=== PATIENT | female | born 1990 | race Caucasian/White ===

== ENCOUNTER 2017-08-03 22:46 | Inpatient (IN) | payer MEDICAID ==
[~2017-08-03] VITALS: Ht 162.6 cm; Wt 74.3 kg
[2017-08-03] MEDS ORDERED: CALCIUM CHLORIDE 10%, 10ML SYR ONE (23:07)
[2017-08-03] MEDS ORDERED: SODIUM BICARB 8.4%, 50ML SYRINGE ONE (23:07)
[2017-08-03] MEDS ORDERED: CALCIUM CHLORIDE 10%, 10ML SYR IVPush ONE (23:30)
[2017-08-03] MEDS ORDERED: SODIUM CHLORIDE 0.9% 1,000ML IVBOLUS ONE ×2 (23:30)
[2017-08-03] MEDS ORDERED: SODIUM BICARB 8.4%, 50ML SYRINGE IVPush ONE (23:30)
[2017-08-03 23:31] LABS: ACETONE, SERUM Large (80mg/dL) mg/dL (Negative)
[2017-08-03] MEDS ORDERED: REGULAR INSULIN 62.5 UNITS in SODIUM CHLORIDE 0.9% 249.375 ML IV PRN (23:37)
[2017-08-03] MEDS ORDERED: LORazepam 2 MG/ML, 1ML ONE (23:39)
[2017-08-03 23:42] LABS: BASOPHILS # (AUTO) 0.03 x10^3/uL (0-0.1); BASOPHILS % (AUTO) 0 % (0-1); EOSINOPHILS % (AUTO) 0 % (1-7); LYMPHOCYTES # (AUTO) 1.36 x10^3/uL (1-3.4); LYMPHOCYTES % (AUTO) 9 % (22-44); MD NO; MEAN CORPUSCULAR HEMOGLOBIN 34.8 pg (27.0-34.8); MEAN CORPUSCULAR VOLUME 105.3 fL (80-100); MEAN PLATELET VOLUME 9.7 fL (7.4-10.4); MONOCYTES # (AUTO) 0.68 x10^3/uL (0.2-0.8); MONOCYTES % (AUTO) 5 % (2-9); NEUTROPHILS % (AUTO) 86 % (42-75); PLATELET COUNT 281 x10^3/uL (130-400); RED BLOOD COUNT 4.43 x10^6/uL (3.82-5.3); RED CELL DISTRIBUTION WIDTH 13.8 % (9.6-15.2)
[2017-08-03 23:55] LABS: PH, VENOUS 7.221 pH (7.320-7.420)
[2017-08-04 00:32] LABS: ALANINE AMINOTRANSFERASE 108 U/L (12-78); ALBUMIN 3.8 g/dL (3.4-5.0); ANION GAP 34 mmol/L (5-15); CALCIUM 9.9 mg/dL (8.5-10.1); CHLORIDE 99 mmol/L (98-107); CREATININE 1.16 mg/dL (0.55-1.02)
[2017-08-04 00:34] LABS: ALKALINE PHOSPHATASE 98 U/L (45-117); TOTAL PROTEIN 8.8 g/dL (6.4-8.2)
[2017-08-04] MEDS ORDERED: LORazepam 2 MG/ML, 1ML ONE (01:29)
[2017-08-04] MEDS ORDERED: LORazepam 2 MG/ML, 1ML IVPush ONE ×2 (01:30)
[2017-08-04] MEDS ORDERED: MAGNESIUM SULFATE PMX 2GM/50ML 50 ML IV ONE (01:30)
[2017-08-04 01:36] LABS: MICROSCOPIC AUTO
[2017-08-04 01:42] LABS: CULTURE INDICATED? NO
[2017-08-04] MEDS ORDERED: D5%-0.45% NACL 1,000 ML IV PRN (01:44)
[2017-08-04] MEDS ORDERED: REGULAR INSULIN 62.5 UNITS in SODIUM CHLORIDE 0.9% 249.375 ML IV PRN ×2 (01:44→07:30)
[2017-08-04] MEDS ORDERED: SODIUM CHLORIDE 0.9% 1,000 ML IV SCH (01:47)
[2017-08-04 01:51] LABS: AMPHETAMINE SCREEN, URINE Negative (Negative); BARBITURATE SCREEN, URINE Negative (Negative); BENZODIAZEPINE SCREEN, URINE Negative (Negative); CANNABINOID SCREEN, URINE Negative (Negative); COCAINE SCREEN, URINE Negative (Negative); METHADONE SCREEN, URINE Negative (Negative); OPIATE SCREEN, URINE Negative (Negative)
[2017-08-04] MEDS ORDERED: ONDANSETRON 2MG/ML, 2ML IVPush PRN (02:00)
[2017-08-04] MEDS ORDERED: OXYcodone IR 5MG TABLET PO PRN (02:00)
[2017-08-04] MEDS ORDERED: LORazepam 1MG TABLET PO PRN ×4 (02:00)
[2017-08-04] MEDS ORDERED: BISACODYL 10 MG SUPP PR PRN (02:00)
[2017-08-04] MEDS ORDERED: hydrALAzine 20 MG/ML, 1ML IVPush PRN (02:00)
[2017-08-04] MEDS ORDERED: POLYETHYLENE GLYCOL 17 GM PACKET PO PRN (02:00)
[2017-08-04] MEDS ORDERED: morphine SULFATE 10 MG/ML, 1ML IVPush PRN (02:00)
[2017-08-04] MEDS ORDERED: LORazepam 0.5MG TABLET PO PRN (02:00)
[2017-08-04] MEDS ORDERED: LORazepam 2 MG/ML, 1ML IV PRN ×5 (02:00)
[2017-08-04 02:43] LABS: HEMOGLOBIN A1C 8.9 % (4.2-6.3)
[2017-08-04] MEDS: POTASSIUM CHLORIDE 20 MEQ in SODIUM CHLORIDE 0.45% 1,000 ML IV SCH ×2 (02:55→05:30)
[2017-08-04 03:39] VITALS: BP 117/86
[2017-08-04 04:00] VITALS: BP 140/92
[2017-08-04] MEDS: HEPARIN 5,000 UNITS/ML, 1ML SQ SCH ×3 (04:35→20:48)
[2017-08-04 05:05] LABS: ANION GAP 24 mmol/L (5-15); CALCIUM 8.6 mg/dL (8.5-10.1); CHLORIDE 110 mmol/L (98-107); CREATININE 0.96 mg/dL (0.55-1.02)
[2017-08-04] MEDS ORDERED: LORA2VIA4 PO (05:41)
[2017-08-04] MEDS ORDERED: MULT-658 PO (05:41)
[2017-08-04] MEDS ORDERED: INSU100I18 SQ (05:41)
[2017-08-04] MEDS ORDERED: INSU100I17 SQ (05:41)
[2017-08-04] MEDS ORDERED: SERT20OR PO (05:41)
[2017-08-04] MEDS ORDERED: POTASSIUM CHLORIDE 20 MEQ in DEXTROSE 5% 1,000 ML IV SCH (07:30)
[2017-08-04] MEDS ORDERED: LORazepam 2 MG/ML, 1ML IVPush PRN (08:30)
[2017-08-04] MEDS: CHLORDIAZEPOXIDE 25 MG CAPSULE PO SCH ×3 (08:41→20:48)
[2017-08-04] MEDS: SENNA/DOCUSATE TABLET PO SCH (08:41)
[2017-08-04] MEDS: THIAMINE 100MG TABLET PO SCH ×2 (08:41→20:49)
[2017-08-04] MEDS: FOLIC ACID 1 MG TABLET PO SCH (08:41)
[2017-08-04] MEDS: MULTIVITAMINS/MINERALS TABLET PO SCH (09:00)
[2017-08-04] MEDS ORDERED: THIAMINE 100MG TABLET PO SCH (09:00)
[2017-08-04 10:47] LABS: ANION GAP 17 mmol/L (5-15); CALCIUM 8.8 mg/dL (8.5-10.1); CHLORIDE 109 mmol/L (98-107); CREATININE 1.24 mg/dL (0.55-1.02)
[2017-08-04] MEDS ORDERED: SODIUM PHOSPHATE 20 MMOL in SODIUM CHLORIDE 0.9% 500 ML IV ONE (11:00)
[2017-08-04 12:21] LABS: ANION GAP 16 mmol/L (5-15); CALCIUM 8.8 mg/dL (8.5-10.1); CHLORIDE 108 mmol/L (98-107)
[2017-08-04 16:30] LABS: ANION GAP 12 mmol/L (5-15); CALCIUM 8.5 mg/dL (8.5-10.1); CHLORIDE 108 mmol/L (98-107); CREATININE 1.13 mg/dL (0.55-1.02)
[2017-08-04] MEDS ORDERED: POTASSIUM CHLORIDE 20 MEQ TAB.ER.PRT PO ONE (17:00)
[2017-08-04] MEDS ORDERED: INSULIN GLARGINE 100 UNITS/ML, PEN ONE (17:37)
[2017-08-04] MEDS: INSULIN GLARGINE 100 UNITS/ML, PEN SQ-INSULIN SCH (17:41)
[2017-08-04] MEDS: SODIUM CHLORIDE 0.45% 1,000 ML IV SCH (17:41)
[2017-08-04] MEDS ORDERED: INSULIN LISPRO 100 UNITS/ML, PEN SQ-INSULIN SCH (21:00)
[2017-08-05] MEDS: INSULIN LISPRO 100 UNITS/ML, PEN SQ-INSULIN SCH ×2 (00:54→05:20)
[2017-08-05] MEDS: SODIUM CHLORIDE 0.45% 1,000 ML IV SCH (03:13)
[2017-08-05 04:00] VITALS: BP 115/89
[2017-08-05] MEDS: HEPARIN 5,000 UNITS/ML, 1ML SQ SCH (04:01)
[2017-08-05 04:42] LABS: ALANINE AMINOTRANSFERASE 69 U/L (12-78); ALBUMIN 2.9 g/dL (3.4-5.0); ANION GAP 11 mmol/L (5-15); CALCIUM 8.5 mg/dL (8.5-10.1); CHLORIDE 107 mmol/L (98-107); CREATININE 0.97 mg/dL (0.55-1.02)
[2017-08-05 04:44] LABS: BASOPHILS # (AUTO) 0.07 x10^3/uL (0-0.1); BASOPHILS % (AUTO) 1 % (0-1); EOSINOPHILS # (AUTO) 0.04 x10^3/uL (0-0.4); EOSINOPHILS % (AUTO) 1 % (1-7); LYMPHOCYTES # (AUTO) 2.57 x10^3/uL (1-3.4); LYMPHOCYTES % (AUTO) 35 % (22-44); MD NO; MEAN CORPUSCULAR HEMOGLOBIN 35.4 pg (27.0-34.8); MEAN CORPUSCULAR HGB CONC 34.1 g/dL (32.4-35.8); MEAN CORPUSCULAR VOLUME 103.9 fL (80-100); MEAN PLATELET VOLUME 9.4 fL (7.4-10.4); MONOCYTES % (AUTO) 11 % (2-9); NEUTROPHILS # (AUTO) 3.98 x10^3/uL (1.8-6.8); NEUTROPHILS % (AUTO) 53 % (42-75); PLATELET COUNT 178 x10^3/uL (130-400); RED BLOOD COUNT 3.67 x10^6/uL (3.82-5.3); RED CELL DISTRIBUTION WIDTH 13.8 % (9.6-15.2)
[2017-08-05 04:46] LABS: ALKALINE PHOSPHATASE 77 U/L (45-117); BILIRUBIN,TOTAL 0.9 mg/dL (0.2-1.0); CHOL/HDL RATIO 3.6; CHOLESTEROL, TOTAL 237 mg/dL (140-239); HDL CHOL % 28 % (28-40); HDL CHOLESTEROL (DIRECT) 66 mg/dL (40-60); LDL CHOLESTEROL,CALCULATED 122 mg/dL (54-169); LDL/HDL RATIO 1.8 (0.5-3.0); TRIGLYCERIDES 245 mg/dL (50-200); VLDL CHOLESTEROL 49 mg/dL (0-25)
[2017-08-05] MEDS ORDERED: POTASSIUM CHLORIDE 20 MEQ TAB.ER.PRT PO ONE (08:00)
[2017-08-05] MEDS ORDERED: INSULIN LISPRO 100 UNITS/ML, PEN SQ-INSULIN SCH (08:00)
[2017-08-05] MEDS: SENNA/DOCUSATE TABLET PO SCH (08:24)
[2017-08-05] MEDS: MULTIVITAMINS/MINERALS TABLET PO SCH (08:24)
[2017-08-05] MEDS: THIAMINE 100MG TABLET PO SCH (08:24)
[2017-08-05] MEDS: CHLORDIAZEPOXIDE 25 MG CAPSULE PO SCH (08:24)
[2017-08-05] MEDS: FOLIC ACID 1 MG TABLET PO SCH (08:24)
[2017-08-05] MEDS: INSULIN GLARGINE 100 UNITS/ML, PEN SQ-INSULIN SCH (08:25)
== END 2017-08-05 10:15 | disposition home or self-care (01) | DRG 638 ==
LOC: ED 23:55 → EDIP 08-04 00:50 → CCU 08-04 02:49
PROVIDERS: ADMIT Internal Medicine; ATTEND Internal Medicine
DX: E10.10 Type 1 diabetes mellitus with ketoacidosis without coma (principal); I47.2 Ventricular tachycardia; N17.9 Acute kidney failure, unspecified; E10.649 Type 1 diabetes mellitus with hypoglycemia without coma; F10.239 Alcohol dependence with withdrawal, unspecified; K70.10 Alcoholic hepatitis without ascites; D75.89 Other specified diseases of blood and blood-forming organs; E78.5 Hyperlipidemia, unspecified; E86.0 Dehydration; F12.90 Cannabis use, unspecified, uncomplicated; F32.9 Major depressive disorder, single episode, unspecified; F41.9 Anxiety disorder, unspecified; K76.0 Fatty (change of) liver, not elsewhere classified; Z81.8 Family history of other mental and behavioral disorders; Z79.4 Long term (current) use of insulin; Z82.0 Family history of epilepsy and other diseases of the nervous system; Z91.14 Patient's other noncompliance with medication regimen
CPT/HCPCS: 36415; 36600; 71045; 76700; 80047; 80048; 80053; 80061; 80307; 81001; 82010; 82306; 82607; 82803; 82962; 83036; 83735; 84100; 84439; 84443; 84703; 85025; 86705; 86706; 86709; 86803; 87081; 87340; 93005; 96361; 96374; 96375; 96376; J1644; J1815; J3480; J7070; J2060; J3475; J7030; J7040; J7050

== ENCOUNTER 2017-12-16 18:17 | Inpatient (IN) | payer MEDICAID ==
[~2017-12-16] VITALS: Ht 162.6 cm; Wt 73.1 kg
[~2017-12-16 18:17] MED LIST: INSU100I17 SQ; INSU100I18 SQ; LORA2VIA4 PO; MULT-658 PO; SERT20OR PO
[2017-12-16 18:58] LABS: BASOPHILS # (AUTO) 0.03 x10^3/uL (0-0.1); BASOPHILS % (AUTO) 0 % (0-1); EOSINOPHILS # (AUTO) 0.03 x10^3/uL (0-0.4); EOSINOPHILS % (AUTO) 0 % (1-7); LYMPHOCYTES # (AUTO) 3.97 x10^3/uL (1-3.4); LYMPHOCYTES % (AUTO) 48 % (22-44); MD NO; MEAN CORPUSCULAR HEMOGLOBIN 34.7 pg (27.0-34.8); MEAN CORPUSCULAR HGB CONC 33.9 g/dL (32.4-35.8); MEAN CORPUSCULAR VOLUME 102.4 fL (80-100); MEAN PLATELET VOLUME 9.9 fL (7.4-10.4); MONOCYTES # (AUTO) 0.52 x10^3/uL (0.2-0.8); MONOCYTES % (AUTO) 6 % (2-9); NEUTROPHILS # (AUTO) 3.81 x10^3/uL (1.8-6.8); NEUTROPHILS % (AUTO) 46 % (42-75); PH, VENOUS 7.208 pH (7.320-7.420); PLATELET COUNT 248 x10^3/uL (130-400); RED BLOOD COUNT 4.46 x10^6/uL (3.82-5.3)
[2017-12-16] MEDS ORDERED: SODIUM CHLORIDE 0.9% 1,000ML IVBOLUS ONE (19:00)
[2017-12-16] MEDS ORDERED: ONDANSETRON 2MG/ML, 2ML IVPush ONE (19:00)
[2017-12-16] MEDS ORDERED: THIAMINE 100 MG in SODIUM CHLORIDE 0.9% 50 ML IVPB ONE (19:00)
[2017-12-16] MEDS ORDERED: SODIUM CHLORIDE FLUSH 10ML SYR IVF ONE (19:00)
[2017-12-16 19:07] LABS: ALANINE AMINOTRANSFERASE 71 U/L (12-78); ANION GAP 27 mmol/L (5-15); CALCIUM 9.5 mg/dL (8.5-10.1); CHLORIDE 99 mmol/L (98-107); CREATININE 1.15 mg/dL (0.55-1.02)
[2017-12-16 19:10] LABS: ALKALINE PHOSPHATASE 153 U/L (45-117); BILIRUBIN,TOTAL 0.4 mg/dL (0.2-1.0); TOTAL PROTEIN 9.6 g/dL (6.4-8.2)
[2017-12-16 19:13] LABS: O2 FLOW ROOM AIR L/min
[2017-12-16] MEDS ORDERED: ONDANSETRON 2MG/ML, 2ML ONE (19:15)
[2017-12-16] MEDS ORDERED: REGULAR INSULIN 62.5 UNITS in SODIUM CHLORIDE 0.9% 249.375 ML IV PRN ×2 (19:26→20:48)
[2017-12-16] MEDS ORDERED: SODIUM CHLORIDE 0.9%, 500ML IVBOLUS ONE (19:30)
[2017-12-16] MEDS ORDERED: ESCI20TA10 PO (20:01)
[2017-12-16 20:20] LABS: ACETONE, SERUM Large (80mg/dL) mg/dL (Negative)
[2017-12-16] MEDS ORDERED: D5%-0.45% NACL 1,000 ML IV PRN (20:48)
[2017-12-16] MEDS: SODIUM CHLORIDE 0.9% 1,000 ML IV SCH (20:53)
[2017-12-16] MEDS ORDERED: ONDANSETRON ODT 4 MG PO PRN (21:00)
[2017-12-16] MEDS ORDERED: ONDANSETRON 2MG/ML, 2ML IVPush PRN (21:00)
[2017-12-16] MEDS ORDERED: BISACODYL 10 MG SUPP PR PRN (21:00)
[2017-12-16] MEDS ORDERED: PROMETHAZINE 25 MG/ML, 1ML IM PRN (21:00)
[2017-12-16] MEDS ORDERED: DOCUSATE 100 MG CAPSULE PO PRN (21:00)
[2017-12-16] MEDS ORDERED: LORazepam 0.5MG TABLET PO PRN (21:00)
[2017-12-16] MEDS ORDERED: LORazepam 2 MG/ML, 1ML IV PRN ×5 (21:00)
[2017-12-16] MEDS ORDERED: LORazepam 1MG TABLET PO PRN ×4 (21:00)
[2017-12-16] MEDS ORDERED: hydrALAzine 20 MG/ML, 1ML IVPush PRN (21:00)
[2017-12-16] MEDS ORDERED: POLYETHYLENE GLYCOL 17 GM PACKET PO PRN (21:00)
[2017-12-16] MEDS ORDERED: MAGNESIUM SULFATE PMX 2GM/50ML 50 ML IV ONE (21:30)
[2017-12-16 21:38] LABS: FREE T4 (FREE THYROXINE) 0.71 ng/dL (0.76-1.46)
[2017-12-16 22:00] LABS: FOLATE LEVEL 12.1 ng/mL (3.1-17.5)
[2017-12-16] MEDS: HEPARIN 5,000 UNITS/ML, 1ML SQ SCH (22:26)
[2017-12-16 23:11] LABS: MICROSCOPIC AUTO
[2017-12-16 23:17] LABS: CULTURE INDICATED? YES
[2017-12-17 00:17] LABS: ANION GAP 19 mmol/L (5-15); CALCIUM 8.8 mg/dL (8.5-10.1); CHLORIDE 104 mmol/L (98-107); CREATININE 0.92 mg/dL (0.55-1.02)
[2017-12-17] MEDS ORDERED: MAGNESIUM SULFATE PMX 2GM/50ML 50 ML IV ONE (01:00)
[2017-12-17] MEDS ORDERED: ERGOCALCIFEROL 50,000 UNIT CAPSULE PO SCH (01:00)
[2017-12-17] MEDS ORDERED: CEFTRIAXONE 1,000 MG in SODIUM CHLORIDE 0.9% 50 ML IVPB SCH (01:00)
[2017-12-17 04:37] VITALS: BP 116/80
[2017-12-17 04:49] LABS: CHLORIDE 104 mmol/L (98-107)
[2017-12-17 05:01] LABS: ALANINE AMINOTRANSFERASE 51 U/L (12-78); ALBUMIN 2.9 g/dL (3.4-5.0); ALKALINE PHOSPHATASE 102 U/L (45-117); ANION GAP 13 mmol/L (5-15); BILIRUBIN,TOTAL 0.4 mg/dL (0.2-1.0); CALCIUM 8.3 mg/dL (8.5-10.1); CHOL/HDL RATIO 4.1; CHOLESTEROL, TOTAL 240 mg/dL (140-239); CREATININE 0.88 mg/dL (0.55-1.02); HDL CHOL % 25 % (28-40); HDL CHOLESTEROL (DIRECT) 59 mg/dL (40-60); LDL CHOLESTEROL,CALCULATED 132 mg/dL (54-169); LDL/HDL RATIO 2.2 (0.5-3.0); TOTAL PROTEIN 7.3 g/dL (6.4-8.2); TRIGLYCERIDES 247 mg/dL (50-200); VLDL CHOLESTEROL 49 mg/dL (0-25)
[2017-12-17 05:10] LABS: BASOPHILS # (AUTO) 0.02 x10^3/uL (0-0.1); BASOPHILS % (AUTO) 0 % (0-1); EOSINOPHILS # (AUTO) 0.03 x10^3/uL (0-0.4); EOSINOPHILS % (AUTO) 1 % (1-7); LYMPHOCYTES # (AUTO) 2.39 x10^3/uL (1-3.4); LYMPHOCYTES % (AUTO) 36 % (22-44); MD NO; MEAN CORPUSCULAR HEMOGLOBIN 34.5 pg (27.0-34.8); MEAN CORPUSCULAR HGB CONC 34.2 g/dL (32.4-35.8); MEAN CORPUSCULAR VOLUME 101.1 fL (80-100); MEAN PLATELET VOLUME 10.1 fL (7.4-10.4); MONOCYTES # (AUTO) 0.77 x10^3/uL (0.2-0.8); MONOCYTES % (AUTO) 12 % (2-9); NEUTROPHILS # (AUTO) 3.41 x10^3/uL (1.8-6.8); NEUTROPHILS % (AUTO) 52 % (42-75); PLATELET COUNT 190 x10^3/uL (130-400); RED BLOOD COUNT 3.71 x10^6/uL (3.82-5.3); RED CELL DISTRIBUTION WIDTH 15.7 % (9.6-15.2)
[2017-12-17] MEDS: HEPARIN 5,000 UNITS/ML, 1ML SQ SCH ×3 (05:21→13:14)
[2017-12-17] MEDS ORDERED: LORazepam 2 MG/ML, 1ML IVPush PRN (07:00)
[2017-12-17] MEDS: SODIUM CHLORIDE 0.9% 1,000 ML IV SCH (08:00)
[2017-12-17] MEDS ORDERED: THIAMINE 100MG TABLET PO SCH (09:00)
[2017-12-17] MEDS ORDERED: CITALOPRAM 20 MG TABLET PO SCH (09:00)
[2017-12-17] MEDS ORDERED: FOLIC ACID 1 MG TABLET PO SCH (09:00)
[2017-12-17] MEDS ORDERED: MULTIVITAMIN 1 TABLET PO SCH (09:00)
[2017-12-17 10:40] LABS: ANION GAP 12 mmol/L (5-15); CALCIUM 8.4 mg/dL (8.5-10.1); CHLORIDE 104 mmol/L (98-107); CREATININE 0.88 mg/dL (0.55-1.02)
[2017-12-17] MEDS ORDERED: INSULIN GLARGINE 100 UNITS/ML, PEN SQ-INSULIN SCH (11:30)
[2017-12-17] MEDS ORDERED: POTASSIUM CHLORIDE 20 MEQ TAB.ER.PRT PO ONE (11:30)
[2017-12-17] MEDS ORDERED: INSU100I18 SQ (14:43)
[2017-12-17] MEDS ORDERED: ESCI20TA10 PO (14:43)
[2017-12-17] MEDS ORDERED: INSU100I17 SQ (14:43)
[2017-12-17] MEDS ORDERED: NALT50TA PO (14:43)
[2017-12-17] MEDS ORDERED: ERGO500017 PO (18:15)
== END 2017-12-17 16:15 | disposition home or self-care (01) | DRG 682 ==
LOC: ED 19:54 → EDIP 19:55 → CCU 21:29 → DCLOUNGE 12-17 15:50
PROVIDERS: ADMIT Internal Medicine; ATTEND Internal Medicine
DX: N17.9 Acute kidney failure, unspecified (principal); E10.10 Type 1 diabetes mellitus with ketoacidosis without coma; F10.239 Alcohol dependence with withdrawal, unspecified; D75.89 Other specified diseases of blood and blood-forming organs; E55.9 Vitamin D deficiency, unspecified; E86.0 Dehydration; F10.229 Alcohol dependence with intoxication, unspecified; N13.9 Obstructive and reflux uropathy, unspecified; E10.65 Type 1 diabetes mellitus with hyperglycemia; F12.10 Cannabis abuse, uncomplicated; F32.9 Major depressive disorder, single episode, unspecified; F41.9 Anxiety disorder, unspecified; Z79.4 Long term (current) use of insulin; Z81.8 Family history of other mental and behavioral disorders; Z82.0 Family history of epilepsy and other diseases of the nervous system; Z91.14 Patient's other noncompliance with medication regimen; Z72.0 Tobacco use
CPT/HCPCS: 36415; 74022; 80048; 80053; 80061; 80307; 81001; 82010; 82306; 82607; 82746; 82803; 82962; 83036; 83735; 84100; 84439; 84443; 84703; 85025; 87077; 87081; 87086; 87147; 87186; J0696; J1644; J1815; J2405; J3411; J2060; J3475; J7030; J7040; J7050

== ENCOUNTER 2018-04-25 14:18 | Inpatient (IN) | payer SELFPAY ==
[~2018-04-25] VITALS: Ht 162.6 cm; Wt 78.3 kg
[~2018-04-25 14:18] MED LIST changes: +ERGO500017 PO; +ESCI20TA10 PO; -LORA2VIA4 PO; +LORA2VIA6 PO; +NALT50TA PO
[2018-04-25] MEDS ORDERED: ONDANSETRON 2MG/ML, 2ML IVPush ONE (15:00)
[2018-04-25] MEDS ORDERED: SODIUM CHLORIDE 0.9% 1,000ML IVBOLUS ONE (15:00)
[2018-04-25 15:30] LABS: PH, VENOUS 7.132 pH (7.320-7.420)
[2018-04-25] MEDS ORDERED: ONDANSETRON 2MG/ML, 2ML ONE (15:33)
[2018-04-25 15:35] LABS: MEAN CORPUSCULAR HEMOGLOBIN 35.4 pg (27.0-34.8); MEAN CORPUSCULAR HGB CONC 32.5 g/dL (32.4-35.8); MEAN CORPUSCULAR VOLUME 108.8 fL (80-100); MEAN PLATELET VOLUME 10.7 fL (7.4-10.4); PLATELET COUNT 202 x10^3/uL (130-400); RED BLOOD COUNT 4.04 x10^6/uL (3.82-5.3); RED CELL DISTRIBUTION WIDTH 14.9 % (9.6-15.2)
[2018-04-25 15:37] LABS: O2 FLOW ROOM AIR L/min
[2018-04-25 15:42] LABS: ALANINE AMINOTRANSFERASE 269 U/L (12-78); ALBUMIN 3.7 g/dL (3.4-5.0); ANION GAP 32 mmol/L (5-15); CALCIUM 9.7 mg/dL (8.5-10.1); CHLORIDE 101 mmol/L (98-107); CREATININE 1.22 mg/dL (0.55-1.02)
[2018-04-25 15:44] LABS: ALKALINE PHOSPHATASE 166 U/L (45-117); BILIRUBIN,TOTAL 0.7 mg/dL (0.2-1.0); TOTAL PROTEIN 8.6 g/dL (6.4-8.2)
[2018-04-25] MEDS ORDERED: BISACODYL 10 MG SUPP PR PRN (16:00)
[2018-04-25] MEDS ORDERED: IBUPROFEN 600 MG TABLET PO PRN (16:00)
[2018-04-25] MEDS ORDERED: ACETAMINOPHEN 325 MG TABLET PO PRN (16:00)
[2018-04-25] MEDS ORDERED: ENOXAPARIN 40 MG/0.4 ML SQ SCH (16:00)
[2018-04-25] MEDS ORDERED: ONDANSETRON 2MG/ML, 2ML IVPush PRN (16:00)
[2018-04-25] MEDS ORDERED: LABETALOL 5MG/ML, 20ML IVPush PRN (16:00)
[2018-04-25] MEDS ORDERED: ONDANSETRON ODT 4 MG PO PRN (16:00)
[2018-04-25] MEDS ORDERED: POLYETHYLENE GLYCOL 17 GM PACKET PO PRN (16:00)
[2018-04-25] MEDS ORDERED: REGULAR INSULIN 62.5 UNITS in SODIUM CHLORIDE 0.9% 249.375 ML IV PRN (16:00)
[2018-04-25 16:22] LABS: ACETONE, SERUM Moderate(40mg/dL) mg/dL (Negative); BASOPHILS % (AUTO) 1 % (0-1); EOSINOPHILS # (AUTO) 0.09 x10^3/uL (0-0.4); EOSINOPHILS % (AUTO) 1 % (1-7); LYMPHOCYTES # (AUTO) 6.44 x10^3/uL (1-3.4); LYMPHOCYTES % (AUTO) 55 % (22-44); MD SCAN; MONOCYTES # (AUTO) 0.49 x10^3/uL (0.2-0.8); MONOCYTES % (AUTO) 4 % (2-9); NEUTROPHILS % (AUTO) 40 % (42-75)
[2018-04-25 16:44] LABS: THYROID STIMULATING HORMONE 1.61 mIU/L (0.358-3.740)
[2018-04-25 16:53] LABS: HEMOGLOBIN A1C 9.7 % (4.2-6.3)
[2018-04-25] MEDS: D5%-0.45NACL+KCL 20MEQ 1,000 ML IV SCH ×2 (17:41→20:40)
[2018-04-25] MEDS: NS + 20MEQ KCL 1,000 ML IV SCH ×2 (18:09→20:58)
[2018-04-25 19:07] LABS: MICROSCOPIC AUTO
[2018-04-25 19:08] LABS: CULTURE INDICATED? YES
[2018-04-25 20:21] LABS: ANION GAP 28 mmol/L (5-15); CALCIUM 8.1 mg/dL (8.5-10.1); CHLORIDE 109 mmol/L (98-107); CREATININE 1.11 mg/dL (0.55-1.02)
[2018-04-25] MEDS ORDERED: INSU100V12 SQ (20:56)
[2018-04-25 21:04] LABS: AMPHETAMINE SCREEN, URINE Negative (Negative); BARBITURATE SCREEN, URINE Negative (Negative); BENZODIAZEPINE SCREEN, URINE Negative (Negative); CANNABINOID SCREEN, URINE Positive (Negative); COCAINE SCREEN, URINE Positive (Negative); METHADONE SCREEN, URINE Negative (Negative); OPIATE SCREEN, URINE Negative (Negative)
[2018-04-25] MEDS ORDERED: MAGNESIUM SULFATE PMX 2GM/50ML 50 ML IV ONE (22:00)
[2018-04-26] MEDS: NS + 20MEQ KCL 1,000 ML IV SCH ×2 (00:31→02:12)
[2018-04-26 00:46] LABS: ANION GAP 15 mmol/L (5-15); CALCIUM 7.7 mg/dL (8.5-10.1); CHLORIDE 106 mmol/L (98-107); CREATININE 1.01 mg/dL (0.55-1.02)
[2018-04-26 03:32] VITALS: BP 100/56
[2018-04-26 04:27] LABS: BASOPHILS # (AUTO) 0.02 x10^3/uL (0-0.1); BASOPHILS % (AUTO) 0 % (0-1); EOSINOPHILS # (AUTO) 0.01 x10^3/uL (0-0.4); EOSINOPHILS % (AUTO) 0 % (1-7); LYMPHOCYTES # (AUTO) 2.01 x10^3/uL (1-3.4); LYMPHOCYTES % (AUTO) 25 % (22-44); MD NO; MEAN CORPUSCULAR HEMOGLOBIN 35.4 pg (27.0-34.8); MEAN CORPUSCULAR HGB CONC 33.4 g/dL (32.4-35.8); MEAN CORPUSCULAR VOLUME 106.2 fL (80-100); MEAN PLATELET VOLUME 10.2 fL (7.4-10.4); MONOCYTES # (AUTO) 0.93 x10^3/uL (0.2-0.8); MONOCYTES % (AUTO) 12 % (2-9); NEUTROPHILS # (AUTO) 5.07 x10^3/uL (1.8-6.8); NEUTROPHILS % (AUTO) 63 % (42-75); PLATELET COUNT 165 x10^3/uL (130-400); RED BLOOD COUNT 3.44 x10^6/uL (3.82-5.3); RED CELL DISTRIBUTION WIDTH 14.4 % (9.6-15.2)
[2018-04-26] MEDS: D5%-0.45NACL+KCL 20MEQ 1,000 ML IV SCH (04:31)
[2018-04-26 04:33] LABS: ANION GAP 8 mmol/L (5-15); CALCIUM 8.4 mg/dL (8.5-10.1); CHLORIDE 104 mmol/L (98-107)
[2018-04-26 04:39] LABS: ALANINE AMINOTRANSFERASE 190 U/L (12-78); ALBUMIN 2.9 g/dL (3.4-5.0); ALKALINE PHOSPHATASE 114 U/L (45-117); BILIRUBIN,TOTAL 0.7 mg/dL (0.2-1.0); CHOL/HDL RATIO 2.5; CHOLESTEROL, TOTAL 217 mg/dL (140-239); HDL CHOL % 40 % (28-40); HDL CHOLESTEROL (DIRECT) 87 mg/dL (40-60); LDL CHOLESTEROL,CALCULATED 111 mg/dL (54-169); LDL/HDL RATIO 1.3 (0.5-3.0); TOTAL PROTEIN 6.7 g/dL (6.4-8.2); TRIGLYCERIDES 97 mg/dL (50-200); VLDL CHOLESTEROL 19 mg/dL (0-25)
[2018-04-26] MEDS ORDERED: POTASSIUM PHOSPHATE 44 MEQ in SODIUM CHLORIDE 0.9% 500 ML IV ONE (08:00)
[2018-04-26] MEDS ORDERED: INSULIN LISPRO 100 UNITS/ML, PEN SQ-INSULIN SCH (08:00)
[2018-04-26] MEDS ORDERED: SODIUM CHLORIDE 0.9% 1,000 ML IV SCH (08:00)
[2018-04-26] MEDS ORDERED: SENNA/DOCUSATE TABLET PO SCH (09:00)
[2018-04-26] MEDS ORDERED: INSULIN GLARGINE 100 UNITS/ML, PEN SQ-INSULIN SCH (09:00)
== END 2018-04-26 11:58 | disposition left against medical advice (07) | DRG 441 ==
LOC: ED 17:17 → CCU 17:30
PROVIDERS: ADMIT Internal Medicine; ATTEND Internal Medicine
DX: B17.9 Acute viral hepatitis, unspecified (principal); K85.20 Alcohol induced acute pancreatitis without necrosis or infection; E11.10 Type 2 diabetes mellitus with ketoacidosis without coma; N17.0 Acute kidney failure with tubular necrosis; D53.9 Nutritional anemia, unspecified; D72.828 Other elevated white blood cell count; E55.9 Vitamin D deficiency, unspecified; F14.10 Cocaine abuse, uncomplicated; F32.9 Major depressive disorder, single episode, unspecified; F41.9 Anxiety disorder, unspecified; F10.20 Alcohol dependence, uncomplicated; F17.200 Nicotine dependence, unspecified, uncomplicated; Z82.0 Family history of epilepsy and other diseases of the nervous system; Z91.19 Patient's noncompliance with other medical treatment and regimen; Z87.440 Personal history of urinary (tract) infections
CPT/HCPCS: 36415; 71045; 80048; 80053; 80061; 80307; 81001; 82010; 82803; 82962; 83036; 83690; 83735; 84100; 84443; 85025; 87081; 87086; 93005; 96372; 96374; 96376; G0378; J1650; J1815; J2405; J3480; J3475; J7030; J7040; J7050

== ENCOUNTER 2018-06-10 07:45 | Inpatient (IN) | payer OTHER ==
[~2018-06-10] VITALS: Ht 162.6 cm; Wt 77.8 kg
[~2018-06-10 07:45] MED LIST changes: +INSU100V12 SQ
--- NOTE | 2018-06-10 07:54 | NUR ---
Pt BIB EMS from home for SOB. Pt in SVT on medic arrival with bp of 60/p, given 6mg adenosine with HR down to 110s and BP 88/61. Pt tachycardic, tachypnic. BG 3789 by EMS. Hx DM and SVT. Pt also c/o pain on urination, L flank pain. Also states daily drinker of 1pint rum daily. States no ETOH in 24 hours.
[2018-06-10] MEDS ORDERED: SODIUM CHLORIDE 0.9% 1,000ML IVBOLUS ONE ×2 (08:00→09:00)
[2018-06-10 08:33] LABS: MEAN CORPUSCULAR HEMOGLOBIN 35.6 pg (27.0-34.8); MEAN CORPUSCULAR HGB CONC 31.6 g/dL (32.4-35.8); MEAN CORPUSCULAR VOLUME 112.6 fL (80-100); MEAN PLATELET VOLUME 10.5 fL (7.4-10.4); PLATELET COUNT 292 x10^3/uL (130-400); RED BLOOD COUNT 3.81 x10^6/uL (3.82-5.3); RED CELL DISTRIBUTION WIDTH 15.2 % (9.6-15.2)
[2018-06-10 08:41] LABS: O2 FLOW ROOM AIR L/min; PH, VENOUS 6.729 pH (7.320-7.420)
[2018-06-10 08:47] LABS: ALANINE AMINOTRANSFERASE 127 U/L (12-78); ALBUMIN 3.6 g/dL (3.4-5.0); CALCIUM 8.8 mg/dL (8.5-10.1); CHLORIDE 96 mmol/L (98-107); CREATININE 1.79 mg/dL (0.55-1.02)
[2018-06-10 08:49] LABS: ALKALINE PHOSPHATASE 200 U/L (45-117); BILIRUBIN,TOTAL 0.9 mg/dL (0.2-1.0); TOTAL PROTEIN 8.7 g/dL (6.4-8.2)
[2018-06-10 08:51] LABS: MD YES
[2018-06-10 08:52] LABS: BAND#(MANUAL) 1.86 x10^3/uL; BANDS%(MANUAL) 7 % (0-7); BASOS#(MANUAL) 0.27 x10^3/uL (0-0.1); BASOS% (MANUAL) 1 % (0-1); LYMPH#(MANUAL) 7.16 x10^3/uL (1-3.4); LYMPHS% (MANUAL) 27 % (22-44); MONOS#(MANUAL) 2.12 x10^3/uL (0.3-2.7); MONOS% (MANUAL) 8 % (2-9); SEG#(MANUAL) 15.11 x10^3/uL (1.8-6.8); SEGS% (MANUAL) 57 % (42-75)
[2018-06-10 08:54] LABS: ANISOCYTOSIS 1+; HEMOGRAM NOTE RECHECKED
[2018-06-10 08:55] LABS: <PLATELET ESTIMATE> ADEQUATE; ANION GAP 35 mmol/L (5-15); LARGE PLATELETS 1+; POLYCHROMASIA 1+
[2018-06-10 09:08] LABS: ACETONE, SERUM Moderate(40mg/dL) mg/dL (Negative)
[2018-06-10] MEDS ORDERED: REGULAR INSULIN 62.5 UNITS in SODIUM CHLORIDE 0.9% 249.375 ML IV PRN ×2 (09:12→11:00)
[2018-06-10 09:26] LABS: MICROSCOPIC INDICATED
[2018-06-10] MEDS ORDERED: SODIUM CHLORIDE 0.9% 1,000 ML IV ONE (09:30)
--- NOTE | 2018-06-10 09:30 | NUR ---
Spoke with pt's sister Sailaja [phone] who would like to be updated with changes.
[2018-06-10 10:11] LABS: CULTURE INDICATED? NO
[2018-06-10] MEDS: D5%-0.45NACL+KCL 20MEQ 1,000 ML IV SCH ×3 (10:33→23:06)
[2018-06-10 10:52] VITALS: BP 101/64
[2018-06-10] MEDS ORDERED: ONDANSETRON 2MG/ML, 2ML IVPush PRN (11:00)
[2018-06-10] MEDS ORDERED: POLYETHYLENE GLYCOL 17 GM PACKET PO PRN (11:00)
[2018-06-10] MEDS ORDERED: ACETAMINOPHEN 325 MG TABLET PO PRN (11:00)
[2018-06-10] MEDS ORDERED: ONDANSETRON ODT 4 MG PO PRN (11:00)
[2018-06-10] MEDS ORDERED: DOCUSATE 100 MG CAPSULE PO PRN (11:00)
[2018-06-10 11:05] LABS: O2 FLOW ROOM AIR L/min
[2018-06-10] MEDS ORDERED: LORazepam 2 MG/ML, 1ML ONE (11:14)
[2018-06-10 11:18] LABS: ANION GAP 31 mmol/L (5-15); CALCIUM 7.3 mg/dL (8.5-10.1); CHLORIDE 106 mmol/L (98-107); CREATININE 1.51 mg/dL (0.55-1.02)
[2018-06-10] MEDS: ENOXAPARIN 40 MG/0.4 ML SQ SCH (11:18)
[2018-06-10] MEDS: LORazepam 2 MG/ML, 1ML IVPush PRN ×3 (11:18→21:20)
[2018-06-10 11:48] LABS: RAPID INFLUENZA A Negative (Negative); RAPID INFLUENZA B Negative (Negative)
[2018-06-10] MEDS: SODIUM CHLORIDE 0.9% 1,000 ML IV SCH ×2 (13:19→22:43)
[2018-06-10] MEDS ORDERED: MAGNESIUM SULFATE PMX 4GM/100M 100 ML IVPB ONE (13:30)
[2018-06-10] MEDS ORDERED: MAGNESIUM SULFATE 4 GM in SODIUM CHLORIDE 0.9% 100 ML IV ONE (13:30)
[2018-06-10] MEDS ORDERED: SODIUM BICARB 8.4%, 50ML SYRINGE IVPush ONE (13:30)
[2018-06-10 16:30] LABS: ANION GAP 18 mmol/L (5-15); CALCIUM 8.1 mg/dL (8.5-10.1); CHLORIDE 103 mmol/L (98-107)
[2018-06-10] MEDS: CHLORDIAZEPOXIDE 25 MG CAPSULE PO SCH ×2 (17:24→20:18)
[2018-06-10 20:30] LABS: ANION GAP 12 mmol/L (5-15); CALCIUM 7.6 mg/dL (8.5-10.1); CHLORIDE 103 mmol/L (98-107); CREATININE 1.25 mg/dL (0.55-1.02)
[2018-06-11 00:57] LABS: ANION GAP 11 mmol/L (5-15); CALCIUM 7.8 mg/dL (8.5-10.1); CHLORIDE 103 mmol/L (98-107); CREATININE 1.09 mg/dL (0.55-1.02)
[2018-06-11 03:39] VITALS: BP 105/76
[2018-06-11] MEDS: LORazepam 2 MG/ML, 1ML IVPush PRN (03:47)
[2018-06-11 04:32] LABS: ALBUMIN 2.6 g/dL (3.4-5.0); ANION GAP 7 mmol/L (5-15); CALCIUM 7.4 mg/dL (8.5-10.1); CHLORIDE 103 mmol/L (98-107)
[2018-06-11 04:35] LABS: ALANINE AMINOTRANSFERASE 76 U/L (12-78); ALKALINE PHOSPHATASE 100 U/L (45-117); BILIRUBIN,TOTAL 0.6 mg/dL (0.2-1.0); CREATININE 1.16 mg/dL (0.55-1.02); TOTAL PROTEIN 6.4 g/dL (6.4-8.2)
[2018-06-11] MEDS: D5%-0.45NACL+KCL 20MEQ 1,000 ML IV SCH (05:26)
[2018-06-11 06:44] LABS: BASOPHILS # (AUTO) 0.02 x10^3/uL (0-0.1); BASOPHILS % (AUTO) 0 % (0-1); EOSINOPHILS # (AUTO) 0.01 x10^3/uL (0-0.4); EOSINOPHILS % (AUTO) 0 % (1-7); LYMPHOCYTES # (AUTO) 1.45 x10^3/uL (1-3.4); LYMPHOCYTES % (AUTO) 17 % (22-44); MD SCAN; MEAN CORPUSCULAR HEMOGLOBIN 35.2 pg (27.0-34.8); MEAN CORPUSCULAR HGB CONC 33.4 g/dL (32.4-35.8); MEAN CORPUSCULAR VOLUME 105.6 fL (80-100); MEAN PLATELET VOLUME 9.7 fL (7.4-10.4); MONOCYTES % (AUTO) 7 % (2-9); NEUTROPHILS # (AUTO) 6.41 x10^3/uL (1.8-6.8); NEUTROPHILS % (AUTO) 76 % (42-75); PLATELET COUNT 163 x10^3/uL (130-400); RED BLOOD COUNT 3.54 x10^6/uL (3.82-5.3)
[2018-06-11] MEDS: SENNA/DOCUSATE TABLET PO SCH (08:29)
[2018-06-11] MEDS: CHLORDIAZEPOXIDE 25 MG CAPSULE PO SCH ×3 (08:29→22:29)
[2018-06-11] MEDS: INSULIN LISPRO 100 UNITS/ML, PEN SQ-INSULIN SCH ×4 (08:31→22:30)
[2018-06-11] MEDS: INSULIN GLARGINE 100 UNITS/ML, PEN SQ-INSULIN SCH ×2 (08:31→22:30)
[2018-06-11 09:00] LABS: ANION GAP 9 mmol/L (5-15); CALCIUM 7.8 mg/dL (8.5-10.1); CHLORIDE 103 mmol/L (98-107); CREATININE 1.16 mg/dL (0.55-1.02)
[2018-06-11] MEDS: ENOXAPARIN 40 MG/0.4 ML SQ SCH (11:24)
[2018-06-11] MEDS: SODIUM CHLORIDE 0.9% 1,000 ML IV SCH ×2 (11:25→22:31)
[2018-06-11 16:16] VITALS: BP 143/104
[2018-06-11 21:09] VITALS: BP 133/92
[2018-06-12 02:15] VITALS: BP 136/86
[2018-06-12 05:45] LABS: CHLORIDE 105 mmol/L (98-107)
[2018-06-12 06:09] LABS: ANION GAP 14 mmol/L (5-15); CALCIUM 8.2 mg/dL (8.5-10.1); CREATININE 0.63 mg/dL (0.55-1.02)
[2018-06-12] MEDS ORDERED: SODIUM CHLORIDE 0.9% 1,000ML IVBOLUS ONE (07:30)
[2018-06-12 07:41] VITALS: BP 124/86
[2018-06-12] MEDS: SENNA/DOCUSATE TABLET PO SCH (08:02)
[2018-06-12] MEDS: CHLORDIAZEPOXIDE 25 MG CAPSULE PO SCH (08:02)
[2018-06-12] MEDS: INSULIN GLARGINE 100 UNITS/ML, PEN SQ-INSULIN SCH (08:03)
[2018-06-12] MEDS: INSULIN LISPRO 100 UNITS/ML, PEN SQ-INSULIN SCH ×2 (08:03→11:53)
[2018-06-12] MEDS: ENOXAPARIN 40 MG/0.4 ML SQ SCH (11:00)
[2018-06-12] MEDS ORDERED: SODIUM CHLORIDE 0.9% 1,000 ML IV SCH (11:00)
[2018-06-12 12:52] VITALS: BP 122/89
== END 2018-06-12 15:14 | disposition left against medical advice (07) | DRG 438 ==
LOC: ED 09:35 → CCU 09:36 → ICU 06-11 04:52 → 3NE 06-11 16:13
PROVIDERS: ADMIT Internal Medicine; ATTEND Internal Medicine
PROC: 0T9B70Z Drainage of Bladder with Drainage Device, Via Natural or Artificial Opening (ICD-10-PCS; principal; 2018-06-10)
DX: K85.90 Acute pancreatitis without necrosis or infection, unspecified (principal); E11.10 Type 2 diabetes mellitus with ketoacidosis without coma; N17.0 Acute kidney failure with tubular necrosis; I47.1 Supraventricular tachycardia; K70.10 Alcoholic hepatitis without ascites; Z53.21 Procedure and treatment not carried out due to patient leaving prior to being seen by health care provider; E86.0 Dehydration; F32.9 Major depressive disorder, single episode, unspecified; F41.9 Anxiety disorder, unspecified; E55.9 Vitamin D deficiency, unspecified; Z16.24 Resistance to multiple antibiotics; F12.10 Cannabis abuse, uncomplicated; F14.10 Cocaine abuse, uncomplicated; D53.9 Nutritional anemia, unspecified; F17.200 Nicotine dependence, unspecified, uncomplicated; F10.129 Alcohol abuse with intoxication, unspecified; Z91.14 Patient's other noncompliance with medication regimen; Z87.440 Personal history of urinary (tract) infections; Z79.4 Long term (current) use of insulin; Z82.0 Family history of epilepsy and other diseases of the nervous system
CPT/HCPCS: 36415; 36600; 71045; 80048; 80053; 80307; 81001; 82010; 82803; 82962; 83690; 83735; 83930; 84100; 85025; 86677; 87081; 87400; 93005; 96361; 96374; G0378; J1650; J1815; J2405; J2060; J3475; J3480; J7030; J7050